=== PATIENT | male | born 2000 | race Caucasian/White ===

== ENCOUNTER 2024-04-05 01:58 | Emergency (ER) | payer OTHER ==
[~2024-04-05] VITALS: Ht 175.3 cm; Wt 95.5 kg
[2024-04-05] MEDS: ACETAMINOPHEN 325 MG TAB PO ONE (03:24)
[2024-04-05 08:49] VITALS: BP 121/80; TEMP 99.1; O2SAT 99
== END 2024-04-05 09:00 | disposition home or self-care (01) ==
LOC: EDBD 01:58 → M ED 01:58
DX: S01.01XA Laceration without foreign body of scalp, initial encounter (principal); F10.129 Alcohol abuse with intoxication, unspecified; X58.XXXA Exposure to other specified factors, initial encounter; Y92.410 Unspecified street and highway as the place of occurrence of the external cause; Y93.9 Activity, unspecified; Y99.9 Unspecified external cause status